=== PATIENT | female | born 1930 | race Caucasian/White ===

== ENCOUNTER 2016-11-08 11:49 | Observation (INO) | payer MEDICARE, OTHER ==
[2016-11-08] MEDS ORDERED: SALINE FLUSH 10 ML DISP.SYRIN IVF ONE ×3 (11:59→17:10)
[2016-11-08 12:44] LABS: MEAN CORPUSCULAR HEMOGLOBIN 30.6 pg (28.0-34.0); MEAN CORPUSCULAR VOLUME 96.1 fl (80.0-100.0)
[2016-11-08 13:02] LABS: eGFR (African) > 60; eGFR (Non-African) 38
[2016-11-08] MEDS ORDERED: cefTRIAXone SODIUM 1 GM VIAL ONE (13:18)
[2016-11-08] MEDS ORDERED: 0.9 % SODIUM CHLORIDE 50 ML IV ONE ×2 (13:18→23:52)
--- NOTE | 2016-11-08 13:47 | History and Physical Report ---
History of Present Illnes - History of Present Illness Reason for Visit: Dyspnea, pneumonia, diarrhea History of Present Illness: This is an 86 year old female who has been ill now for the past week. I saw her last week for cough, fever and dyspnea, and she returned to the clinic today for a recheck. She was more dyspneic and was still having fevers off and on. She has a Proair inhaler at home, but does not have a nebulizer. 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 She is feeling more weak, and can no longer ambulate around her home due to weakness and shortness of breath, which she had been able to do prior to this illness. - Past Medical History Cardiac: AFIB (atrial fib/flutter), HTN, Other (cardiomegaly,) Infectious Disease: Other (post herpetic neuralgia) Endocrine: Hypothyroidism - Past Surgical History Past Surgical History: Cataract Removal, Total Hip Replacement - Past Social History Smoke: No Occupation: retired Alcohol: None Drugs: None Lives: With Family (daughter) Domestic Violence: Negative - Health Maintenance Health Maintenance: Tetanus (12/16/15) Influenza Vaccine: Current for this Influenza Season Pneumonia Vaccine: Yes Resuscitation Status: Resusciation Status Resuscitation Status Full Code - Unable to Obtain History Unable to Obtain: No Review of Systems - Review of Systems Constitutional: Fever, Chills, Sweats, Weakness, Malaise Eyes: negative: pain, vision change ENT: negative: Ear Pain, Ear Discharge Respiratory: Cough, Shortness of Breath, SOB with Excertion. negative: Hemoptysis Cardiovascular: negative: Chest Pain, Palpitations, Orthopnea Gastrointestinal: Diarrhea. negative: Nausea Genitourinary: negative: Dysuria Musculoskeletal: negative: Neck Pain, Shoulder Pain, Arm Pain Skin: negative: Rash Neurological: Weakness, Incoordination. negative: Confusion - Medications/Allergies Allergies/Adverse Reactions: Allergies Allergy/AdvReac Type Severity Reaction Status Date / Time No Known Allergies Allergy Verified 07/03/16 11:47 Current Inpatient Medications: Current Inpatient Medications Albuterol/Ipratropium (Duoneb) 3 ml NEB QID [facility] Digoxin (Lanoxin) 125 mcg PO [id number] [facility] Diltiazem HCl (Cardizem Cd) 120 mg PO DAILY [facility] Donepezil HCl (Aricept) 10 mg PO HS [facility] Furosemide (Lasix) 40 mg PO DAILY [facility] Gabapentin (Neurontin) 300 mg PO TID [facility] Ceftriaxone Sodium 1 gm/ (Sodium Chloride) 50 mls @ 100 mls/hr IV QD [facility] Clindamycin Phosphate 150 mg/ (Sodium Chloride) 51 mls @ 51 mls/hr IV Q6 [facility] Levothyroxine Sodium (Synthroid) 50 mcg PO 0700 [facility] Metoprolol Succinate (Toprol Xl) 25 mg PO DAILY [facility] Potassium Chloride (Klor-Con M20) 20 meq PO DAILY [facility] Ropinirole HCl (Requip) 2 mg PO HS [facility] Warfarin Sodium (Coumadin) 5 mg PO [id number] [facility] Exam - Exam General: Alert, Oriented to Person, Oriented to Place, Oriented to Time, Cooperative, Moderate distress (respiratory) HEENT: Atraumatic, PERRLA, EOMI Neck: No: Stridor, Rigidity Lungs: Wheezes, Rhonchi, Prolonged Expiration Cardiovascular: Irregularly Irregular, Atrial Fib Murmur: Systolic Murmur Murmur Location: Left Sternal Boarder Heart Murmur Grade: II Abdomen: Normal bowel sounds, Soft, No tenderness Genitourinary: No: Right Inguinal Hernia Male Genitourinary: No: Other Female Genitourinary: No: Prolapse Integumentary: Normal, [place], Flushed Extremities: No clubbing, No cyanosis, No edema Neurological: Strength Equal Bilat. No: Normal gait, Right Sided Weakness, Left Sided Weakness Psych/Mental Status: Mental status NL - Laboratory Results Laboratory Results: Laboratory Results 11/08/16 11/08/16 12:40 12:40 WBC 6.90 RBC 4.50 Hgb 13.8 Hct 43.3 MCV 96.1 MCH 30.6 MCHC 31.9 RDW 13.1 Plt Count 93 L Sodium 133 L Potassium 4.8 Chloride 103 Carbon Dioxide 28 BUN 47 H Creatinine 1.4 Est GFR ( Amer) > 60 Est GFR (Non-Af Amer) 38 L Glucose 105 H Calcium 9.0 Total Bilirubin 0.4 AST 34 ALT 21 Alkaline Phosphatase 101 Total Protein 6.9 Albumin 4.1 Assessment/Plan - Assessment/Plan (1) Pneumonia Status: Acute Current Visit: No Qualifiers: Pneumonia type: due to unspecified organism Laterality: right Lung location: middle lobe of lung Qualified Code(s): J18.9 - Pneumonia, unspecified organism Assessment: Started IV rocephin and clindamycin. Avoided a macrolide due to warfarin therapy (2) Diarrhea Status: Acute Current Visit: Yes Assessment: Recurrent Plan: Check gastrointestinal pathogen panel (3) Atrial fibrillation Status: Chronic Current Visit: No Qualifiers: Atrial fibrillation type: chronic Qualified Code(s): I48.2 - Chronic atrial fibrillation Assessment: Chronic Plan: Continue current medications for rate control/anticoagulation Check INR (4) HTN (hypertension) Status: Chronic Current Visit: No Qualifiers: Hypertension type: essential hypertension Qualified Code(s): I10 - Essential (primary) hypertension Assessment: Continue current medications VTE Assessment - RISK FACTOR SCORE VTE RISK FACTOR SCORES: AGE OVER 60 YEARS, ACUTE INFECTION OTHER THEN SEPSIS - RISK VTE MODERATE RISK: SCORE OF 2 (RISK PROXIMAL DVT 2-4%) PROPHYAXIS NEEDED ( Orderd LEXII soliman, continue warfarin)
[2016-11-08 14:20] VITALS: BMI 31.4
[2016-11-08] MEDS: cefTRIAXone SODIUM 1 GM in 0.9 % SODIUM CHLORIDE 50 ML IV SCH (14:23)
[2016-11-08] MEDS: SODIUM CHLORIDE 0.9% IV SCH ×3 (16:38→23:54)
[2016-11-08] MEDS: CLINDAMYCIN PHOSPHATE IV SCH ×3 (16:38→23:54)
--- NOTE | 2016-11-08 16:41 | Diagnostic Imaging Report ---
[facility] [address] [facility].[address] 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 No acute infiltrates or pleural effusion. Thoracic spine spondylosi . Impression: Mild cardiomegaly with atherosclerotic thoracic aorta No acute infiltrates or pleural effusion Electronically signed on Nov 08, 2016 3:48:11 PM MAINTENANCE MILLWRIGHT by: Jeremi PAULA
[2016-11-08] MEDS: GABAPENTIN 300 MG CAPSULE PO SCH (17:38)
[2016-11-08] MEDS: WARFARIN SODIUM 5 MG TABLET PO SCH (17:39)
[2016-11-08] MEDS: IPRATROPIUM/ALBUTEROL SULFATE 3 ML AMPUL.NEB NEB SCH ×2 (18:46→19:57)
[2016-11-08] MEDS: 0.9 % SODIUM CHLORIDE 1,000 ML IV SCH (19:50)
[2016-11-08] MEDS: rOPINIRole HCL 1 MG TABLET PO SCH (19:56)
[2016-11-08] MEDS: DONEPEZIL HCL 5 MG TABLET PO SCH (19:57)
[2016-11-08] MEDS ORDERED: SALINE FLUSH 10 ML DISP.SYRIN IV SCH (21:00)
[2016-11-09] MEDS: SODIUM CHLORIDE 0.9% IV SCH ×3 (05:58→18:42)
[2016-11-09] MEDS: CLINDAMYCIN PHOSPHATE IV SCH ×3 (05:58→18:42)
[2016-11-09 07:06] LABS: eGFR (African) > 60; eGFR (Non-African) 38
[2016-11-09] MEDS: GABAPENTIN 300 MG CAPSULE PO SCH ×3 (08:51→18:41)
[2016-11-09] MEDS: LEVOTHYROXINE SODIUM 25 MCG TABLET PO SCH (08:51)
[2016-11-09] MEDS: DILTIAZEM HCL 120 MG CAP.ER.24H PO SCH (08:52)
[2016-11-09] MEDS: METOPROLOL SUCCINATE 50 MG TAB.ER.24H PO SCH (08:53)
[2016-11-09] MEDS: POTASSIUM CHLORIDE 20 MEQ TABLET.ER PO SCH (08:53)
[2016-11-09] MEDS: SALINE FLUSH 10 ML DISP.SYRIN IVF SCH ×2 (08:54→21:05)
[2016-11-09] MEDS ORDERED: FUROSEMIDE 40 MG TABLET PO SCH (09:00)
--- NOTE | 2016-11-09 09:04 | Inpatient Progress Note ---
Subjective - Required Recertification Statement I anticipate X number of days because-include discharge plan: 3 - Review of Systems Events since last encounter: Kaia is feeling a little better. She is still dehydrated and her diarrhea is still ongoing. Her gastrointestinal pathogens panel is still pending, but has been collected. Her breathing is better with nebulizer treatment. General: Denies: Chills HEENT: Denies: Head Aches Pulmonary: Dyspnea, Cough Cardiovascular: Denies: Chest Pain Gastrointestinal: Diarrhea. Denies: Nausea Genitourinary: Denies: Dysuria Musculoskeletal: Denies: Neck Pain, Shoulder Pain Neurological: Weakness. Denies: Confusion Objective - Exam Vitals and I&O: Vital Signs Temp 97.7 F 11/09/16 05:53 Pulse 110 H 11/09/16 05:53 Resp 18 11/09/16 05:53 BP 125/58 11/09/16 05:53 Pulse Ox 93 11/09/16 05:53 Intake & Output 11/08/16 11/08/16 11/09/16 11:59 23:59 11:59 Intake Total 540 Balance 540 Weight 88.451 kg Intake: IV 100 Left Forearm 100 Oral 440 Other: Voiding Method Toilet # Voids 1 # Bowel Movements 1 General: Alert, Oriented to Person, Oriented to Place, Oriented to Time HEENT: Atraumatic, PERRLA, EOMI Neck: Supple, No JVD Lungs: Wheezes, Rhonchi Cardiovascular: Regularly Irregular Abdomen: Normal bowel sounds, Soft, No tenderness Extremities: No clubbing, No cyanosis, No edema Skin: Normal, [place], Warm Neurological: Normal gait, Normal speech Psych/Mental Status: Mental status NL - Results Results: Laboratory Results WBC 6.90 K/ul (4.00-12.00) 11/08/16 12:40 RBC 4.50 M/ul (3.90-5.20) 11/08/16 12:40 Hgb 13.8 g/dL (12.0-16.0) 11/08/16 12:40 Hct 43.3 % (34.5-46.5) 11/08/16 12:40 MCV 96.1 fl (80.0-100.0) 11/08/16 12:40 MCH 30.6 pg (28.0-34.0) 11/08/16 12:40 MCHC 31.9 g/dL (30.0-36.0) 11/08/16 12:40 RDW 13.1 % (11.3-14.3) 11/08/16 12:40 Plt Count 93 K/mm3 (130-400) L 11/08/16 12:40 Sodium 135 mmol/L (136-145) L 11/09/16 06:25 Potassium 4.2 mmol/L (3.5-5.0) 11/09/16 06:25 Chloride 103 mmol/L (98-110) 11/09/16 06:25 Carbon Dioxide 22 mmol/L (20-32) 11/09/16 06:25 BUN 43 mg/dL (10-26) H 11/09/16 06:25 Creatinine 1.4 mg/dL (0.4-1.5) 11/09/16 06:25 Estimated Creat Clear 46 11/09/16 06:25 Est GFR ( Amer) > 60 (60-) 11/09/16 06:25 Est GFR (Non-Af Amer) 38 (60-) L 11/09/16 06:25 Glucose 90 mg/dL (70-99) 11/09/16 06:25 Calcium 8.7 mg/dL (8.5-10.5) 11/09/16 06:25 Total Bilirubin 0.4 mg/dL (0.2-1.2) 11/08/16 12:40 AST 34 U/L (0-41) 11/08/16 12:40 ALT 21 U/L (0-45) 11/08/16 12:40 Alkaline Phosphatase 101 U/L (46-116) 11/08/16 12:40 Total Protein 6.9 g/dL (6.0-8.5) 11/08/16 12:40 Albumin 4.1 g/dL (3.0-5.5) 11/08/16 12:40 Assessment/Plan - Assessment/Plan (1) Diarrhea Status: Acute Current Visit: Yes Assessment: Likely recurrence of c. dif Plan: Await gastrointestinal pathogen panel (2) Dehydration Status: Acute Current Visit: No Assessment: Improved, but still azotemic Plan: Continue IVF (3) Pneumonia Status: Acute Current Visit: No Qualifiers: Pneumonia type: due to unspecified organism Laterality: right Lung location: middle lobe of lung Qualified Code(s): J18.9 - Pneumonia, unspecified organism (4) Atrial fibrillation Status: Chronic Current Visit: No Qualifiers: Atrial fibrillation type: chronic Qualified Code(s): I48.2 - Chronic atrial fibrillation Assessment: Chronic Plan: Continue warfarin (5) HTN (hypertension) Status: Chronic Current Visit: No Qualifiers: Hypertension type: essential hypertension Qualified Code(s): I10 - Essential (primary) hypertension Assessment: Controlled
[2016-11-09] MEDS: 0.9 % SODIUM CHLORIDE 1,000 ML IV SCH ×3 (10:45→22:06)
[2016-11-09] MEDS: IPRATROPIUM/ALBUTEROL SULFATE 3 ML AMPUL.NEB NEB SCH ×4 (12:03→22:06)
[2016-11-09] MEDS: DIGOXIN 125 MCG TABLET PO SCH (12:27)
[2016-11-09 14:39] LABS: ADENOVIRUS F 40/41 Not Detected (Not Detected); ASTROVIRUS Not Detected (Not Detected); C. DIFFICILE (TOXIN A/B) Positive (Not Detected); CRYPTOSPORIDIUM Not Detected (Not Detected); CYCLOSPORA CAYETANENSIS Not Detected (Not Detected); ENTAMOEBA HISTOLYTICA Not Detected (Not Detected); GIARDIA LAMBLIA Not Detected (Not Detected); ROTAVIRUS A Not Detected (Not Detected); SAPOVIRUS Not Detected (Not Detected); VIBRIO CHOLERAE Not Detected (Not Detected)
[2016-11-09] MEDS: cefTRIAXone SODIUM 1 GM in 0.9 % SODIUM CHLORIDE 50 ML IV SCH (14:53)
[2016-11-09] MEDS ORDERED: 0.9 % SODIUM CHLORIDE 50 ML IV ONE (18:07)
[2016-11-09] MEDS: WARFARIN SODIUM 5 MG TABLET PO SCH (18:40)
[2016-11-09] MEDS: DONEPEZIL HCL 5 MG TABLET PO SCH (21:03)
[2016-11-09] MEDS: rOPINIRole HCL 1 MG TABLET PO SCH (21:04)
[2016-11-09] MEDS: VANCOMYCIN 125 MG/5 ML PO SCH (21:04)
[2016-11-10] MEDS: VANCOMYCIN 125 MG/5 ML PO SCH ×4 (01:00→18:42)
[2016-11-10] MEDS: CLINDAMYCIN PHOSPHATE IV SCH ×4 (01:05→18:41)
[2016-11-10] MEDS: SODIUM CHLORIDE 0.9% IV SCH ×4 (01:05→18:41)
[2016-11-10] MEDS: LEVOTHYROXINE SODIUM 25 MCG TABLET PO SCH (06:05)
--- NOTE | 2016-11-10 09:01 | Inpatient Progress Note ---
Subjective - Required Recertification Statement I anticipate X number of days because-include discharge plan: 2 - Review of Systems Events since last encounter: Kaia is feeling a little better, however she is still coughing quite a bit. Her gastrointestinal pathogen panel came back yesterday positive for clostridium dificile and she is now on po vancomycin (she is unable to tolerate po metronidazole due to abdominal pain). Her diarrhea continues currently. I am rechecking her chest x ray this morning. General: Denies: Chills, Night Sweats HEENT: Denies: Head Aches Pulmonary: Dyspnea, Cough Cardiovascular: Denies: Chest Pain, Palpitations Gastrointestinal: Diarrhea (and complains of rectal discomfort due to excoriation). Denies: Nausea, Vomiting Genitourinary: Denies: Dysuria Musculoskeletal: Denies: Neck Pain, Shoulder Pain Neurological: Weakness. Denies: Confusion Objective - Exam Vitals and I&O: Vital Signs Temp 98.4 F 11/10/16 06:00 Pulse 110 H 11/10/16 06:00 Resp 22 11/10/16 06:00 BP 108/73 11/10/16 06:00 Pulse Ox 92 11/10/16 06:00 Intake & Output 11/09/16 11/09/16 11/10/16 11:59 23:59 11:59 Intake Total 480 1120 500 Balance 480 1120 500 Intake: Oral 480 1120 500 Other: Voiding Method Toilet Toilet # Voids 1 3 # Bowel Movements 0 General: Alert, Oriented to Person, Oriented to Place, Oriented to Time, Cooperative, Mild distress (respiratory) HEENT: Atraumatic, PERRLA, EOMI. No: Nose Mucous membr. moist/[place] (dry) Neck: Supple, No JVD Lungs: Wheezes, Rales, Rhonchi, Prolonged Expiration Cardiovascular: Irregularly Irregular Abdomen: Normal bowel sounds, Soft, No tenderness Extremities: No clubbing, No cyanosis, No edema Skin: Normal, [place], Warm Neurological: Normal speech Psych/Mental Status: Mental status NL - Results Results: Laboratory Results WBC 6.90 K/ul (4.00-12.00) 11/08/16 12:40 RBC 4.50 M/ul (3.90-5.20) 11/08/16 12:40 Hgb 13.8 g/dL (12.0-16.0) 11/08/16 12:40 Hct 43.3 % (34.5-46.5) 11/08/16 12:40 MCV 96.1 fl (80.0-100.0) 11/08/16 12:40 MCH 30.6 pg (28.0-34.0) 11/08/16 12:40 MCHC 31.9 g/dL (30.0-36.0) 11/08/16 12:40 RDW 13.1 % (11.3-14.3) 11/08/16 12:40 Plt Count 93 K/mm3 (130-400) L 11/08/16 12:40 PT 28.6 Seconds (9.7-11.5) H 11/09/16 09:45 INR 2.7 (0.9-1.1) H 11/09/16 09:45 Sodium 135 mmol/L (136-145) L 11/09/16 06:25 Potassium 4.2 mmol/L (3.5-5.0) 11/09/16 06:25 Chloride 103 mmol/L (98-110) 11/09/16 06:25 Carbon Dioxide 22 mmol/L (20-32) 11/09/16 06:25 BUN 43 mg/dL (10-26) H 11/09/16 06:25 Creatinine 1.4 mg/dL (0.4-1.5) 11/09/16 06:25 Estimated Creat Clear 46 11/09/16 06:25 Est GFR ( Amer) > 60 (60-) 11/09/16 06:25 Est GFR (Non-Af Amer) 38 (60-) L 11/09/16 06:25 Glucose 90 mg/dL (70-99) 11/09/16 06:25 Calcium 8.7 mg/dL (8.5-10.5) 11/09/16 06:25 Total Bilirubin 0.4 mg/dL (0.2-1.2) 11/08/16 12:40 AST 34 U/L (0-41) 11/08/16 12:40 ALT 21 U/L (0-45) 11/08/16 12:40 Alkaline Phosphatase 101 U/L (46-116) 11/08/16 12:40 Total Protein 6.9 g/dL (6.0-8.5) 11/08/16 12:40 Albumin 4.1 g/dL (3.0-5.5) 11/08/16 12:40 Stl C. cayetanensis PCR Not detected (Not Detected) 11/09/16 08:10 Stool Rotavirus (PCR) Not detected (Not Detected) 11/09/16 08:10 Stool Astrovirus (PCR) Not detected (Not Detected) 11/09/16 08:10 Stool Campylobacter PCR Not detected (Not Detected) 11/09/16 08:10 Stool Cryptosporidium PCR Not detected (Not Detected) 11/09/16 08:10 Stl E.coli Shiga Toxins Not detected (Not Detected) 11/09/16 08:10 Stool E.coli 0157 Cult Not detected (Not Detected) 11/09/16 08:10 Stl Aggregat E Coli PCR Not detected (Not Detected) 11/09/16 08:10 Stl E. histolytica PCR Not detected (Not Detected) 11/09/16 08:10 Stool Giardia Lamblia PCR Not detected (Not Detected) 11/09/16 08:10 Stool Sapovirus (PCR) Not detected (Not Detected) 11/09/16 08:10 Stl P. shigelloides PCR Not detected (Not Detected) 11/09/16 08:10 St Y.enterocolitica PCR Not detected (Not Detected) 11/09/16 08:10 Stool Vibrio (PCR) Not detected (Not Detected) 11/09/16 08:10 Stl Vibrio cholerae PCR Not detected (Not Detected) 11/09/16 08:10 Stl Norovirus GI/GII PCR Not detected (Not Detected) 11/09/16 08:10 Adenovirus (PCR) Not detected (Not Detected) 11/09/16 08:10 C. diff Tox Assay (Ref) Positive (Not Detected) H 11/09/16 08:10 E. coli (PCR) Not detected (Not Detected) 11/09/16 08:10 Escherichia coli 0157 Not detected (Not Detected) 11/09/16 08:10 Salmonella (PCR) Not detected (Not Detected) 11/09/16 08:10 Assessment/Plan - Assessment/Plan (1) Diarrhea Status: Acute Current Visit: Yes Assessment: Due to c. dif Plan: Continue po vancomycin (2) Dehydration Status: Acute Current Visit: No Assessment: Improved Plan: Continue IVF due to ongoing fluid losses with diarrhea (3) Pneumonia Status: Acute Current Visit: No Qualifiers: Pneumonia type: due to unspecified organism Laterality: right Lung location: middle lobe of lung Qualified Code(s): J18.9 - Pneumonia, unspecified organism Assessment: Recheck CXR today (4) Atrial fibrillation Status: Chronic Current Visit: No Qualifiers: Atrial fibrillation type: chronic Qualified Code(s): I48.2 - Chronic atrial fibrillation Assessment: Adequately anticoagulated (5) HTN (hypertension) Status: Chronic Current Visit: No Qualifiers: Hypertension type: essential hypertension Qualified Code(s): I10 - Essential (primary) hypertension Assessment: Well controlled
[2016-11-10] MEDS: 0.9 % SODIUM CHLORIDE 1,000 ML IV SCH ×4 (09:10→23:08)
[2016-11-10] MEDS: IPRATROPIUM/ALBUTEROL SULFATE 3 ML AMPUL.NEB NEB SCH ×4 (09:12→21:00)
[2016-11-10] MEDS: POTASSIUM CHLORIDE 20 MEQ TABLET.ER PO SCH (09:55)
[2016-11-10] MEDS: GABAPENTIN 300 MG CAPSULE PO SCH ×3 (09:55→18:42)
[2016-11-10] MEDS: DILTIAZEM HCL 120 MG CAP.ER.24H PO SCH (09:55)
[2016-11-10] MEDS: METOPROLOL SUCCINATE 50 MG TAB.ER.24H PO SCH (09:56)
[2016-11-10] MEDS: SALINE FLUSH 10 ML DISP.SYRIN IVF SCH ×2 (10:01→21:17)
--- NOTE | 2016-11-10 11:46 | Diagnostic Imaging Report ---
[facility] [address] [facility] [address] [address] Report Submission Date: Nov 10, 2016 11:06:38 AM TRACER [employer]LET SECTION SUPERVISOR Patient Study Name: NISH CASH Date: Nov 10, 2016 8:57:01 AM TRACER [employer]LET SE[employer] SUPERVISOR Modality Type: CR Gender: F Description: CHEST : 28 Institution: [facility] Physician: [facility] Chest - one-view Clinical history: Fever. Dyspnea. Findings: Examination of the chest in single portable AP view 11/10/2016 0857 hours with comparison to examination of 11/08/2016 demonstrates again cardiomegaly and aortic atherosclerosis. There is patchy infiltrate in the retrocardiac region of the right base. The aorta is atherosclerotic. Bony thorax is intact. Impression: 1. Patchy right basilar infiltrate. 2. Cardiomegaly and aortic atherosclerosis. Electronically signed on Nov 10, 2016 11:06:38 AM TRACER [employer]ULLET SECTION SUPERVISOR by: Ernesto PAULA
[2016-11-10] MEDS: DIGOXIN 125 MCG TABLET PO SCH (12:28)
[2016-11-10] MEDS: cefTRIAXone SODIUM 1 GM in 0.9 % SODIUM CHLORIDE 50 ML IV SCH (13:25)
[2016-11-10] MEDS: WARFARIN SODIUM 5 MG TABLET PO SCH (18:41)
[2016-11-10] MEDS: DONEPEZIL HCL 5 MG TABLET PO SCH (21:16)
[2016-11-10] MEDS: ACETAMINOPHEN 325 MG TABLET PO PRN (21:17)
[2016-11-10] MEDS: rOPINIRole HCL 1 MG TABLET PO SCH (21:17)
[2016-11-11] MEDS: CLINDAMYCIN PHOSPHATE IV SCH ×5 (00:46→23:52)
[2016-11-11] MEDS: SODIUM CHLORIDE 0.9% IV SCH ×5 (00:46→23:52)
[2016-11-11] MEDS: VANCOMYCIN 125 MG/5 ML PO SCH ×5 (00:47→23:52)
[2016-11-11] MEDS: LEVOTHYROXINE SODIUM 25 MCG TABLET PO SCH (06:11)
[2016-11-11 07:03] LABS: MEAN CORPUSCULAR VOLUME 99.2 fl (80.0-100.0)
[2016-11-11 07:19] LABS: eGFR (African) > 60; eGFR (Non-African) > 60
[2016-11-11] MEDS: IPRATROPIUM/ALBUTEROL SULFATE 3 ML AMPUL.NEB NEB SCH ×4 (09:44→20:43)
[2016-11-11] MEDS: POTASSIUM CHLORIDE 20 MEQ TABLET.ER PO SCH ×2 (10:51→10:53)
[2016-11-11] MEDS: METOPROLOL SUCCINATE 50 MG TAB.ER.24H PO SCH (10:52)
[2016-11-11] MEDS: DILTIAZEM HCL 120 MG CAP.ER.24H PO SCH (10:53)
[2016-11-11] MEDS: SALINE FLUSH 10 ML DISP.SYRIN IVF SCH ×2 (10:54→20:31)
[2016-11-11] MEDS: GABAPENTIN 300 MG CAPSULE PO SCH ×5 (10:56→18:44)
--- NOTE | 2016-11-11 11:37 | Inpatient Progress Note ---
Subjective - Required Recertification Statement I anticipate X number of days because-include discharge plan: 2 - Review of Systems Events since last encounter: Kaia is breathing a little better today. Her fluids are now TKO, and her labs are improved. She says that she feels a little stronger. Her BMs are starting to have some form to them since starting on Vancomycin. General: Denies: Chills HEENT: Denies: Head Aches, Visual Changes Pulmonary: Dyspnea, Cough Cardiovascular: Denies: Chest Pain, Palpitations Gastrointestinal: Diarrhea (improved). Denies: Nausea, Vomiting Genitourinary: Denies: Dysuria, Frequency Musculoskeletal: Denies: Neck Pain, Shoulder Pain Neurological: Weakness. Denies: Confusion Objective - Exam Vitals and I&O: Vital Signs Temp 97.4 F L 11/11/16 09:06 Pulse 116 H 11/11/16 09:06 Resp 20 11/11/16 09:06 BP 133/87 11/11/16 09:06 Pulse Ox 96 11/11/16 09:06 Intake & Output 11/10/16 11/10/16 11/11/16 11:59 23:59 11:59 Intake Total 860 970 480 Balance 860 970 480 Weight 88.451 kg Intake: IV 250 Right Wrist 250 Oral 860 720 480 Other: Voiding Method Toilet Toilet # Voids 3 2 2 # Bowel Movements 0 1 1 General: Alert, Oriented to Person, Oriented to Place, Obese HEENT: Atraumatic, PERRLA, EOMI Neck: Supple, No JVD Lungs: Wheezes, Rales, Rhonchi, Prolonged Expiration, Decreased Air Movement Cardiovascular: Irregularly Irregular Abdomen: Normal bowel sounds, Soft, No tenderness Extremities: No clubbing, No cyanosis, No edema Skin: Normal, [place], Warm Neurological: Normal speech, Strength Equal Bilat Psych/Mental Status: Mental status NL - Results Results: Laboratory Results WBC 7.00 K/ul (4.00-12.00) 11/11/16 06:35 RBC 4.16 M/ul (3.90-5.20) 11/11/16 06:35 Hgb 12.9 g/dL (12.0-16.0) 11/11/16 06:35 Hct 41.3 % (34.5-46.5) 11/11/16 06:35 MCV 99.2 fl (80.0-100.0) 11/11/16 06:35 MCH 31.0 pg (28.0-34.0) 11/11/16 06:35 MCHC 31.3 g/dL (30.0-36.0) 11/11/16 06:35 RDW 13.1 % (11.3-14.3) 11/11/16 06:35 Plt Count 96 K/mm3 (130-400) L 11/11/16 06:35 PT 28.6 Seconds (9.7-11.5) H 11/09/16 09:45 INR 2.7 (0.9-1.1) H 11/09/16 09:45 Sodium 135 mmol/L (136-145) L 11/11/16 06:35 Potassium 4.5 mmol/L (3.5-5.0) 11/11/16 06:35 Chloride 103 mmol/L (98-110) 11/11/16 06:35 Carbon Dioxide 22 mmol/L (20-32) 11/11/16 06:35 BUN 17 mg/dL (10-26) 11/11/16 06:35 Creatinine 0.9 mg/dL (0.4-1.5) 11/11/16 06:35 Estimated Creat Clear 72 11/11/16 06:35 Est GFR ( Amer) > 60 (60-) 11/11/16 06:35 Est GFR (Non-Af Amer) > 60 (60-) 11/11/16 06:35 Glucose 106 mg/dL (70-99) H 11/11/16 06:35 Calcium 9.0 mg/dL (8.5-10.5) 11/11/16 06:35 Total Bilirubin 0.4 mg/dL (0.2-1.2) 11/08/16 12:40 AST 34 U/L (0-41) 11/08/16 12:40 ALT 21 U/L (0-45) 11/08/16 12:40 Alkaline Phosphatase 101 U/L (46-116) 11/08/16 12:40 Total Protein 6.9 g/dL (6.0-8.5) 11/08/16 12:40 Albumin 4.1 g/dL (3.0-5.5) 11/08/16 12:40 Stl C. cayetanensis PCR Not detected (Not Detected) 11/09/16 08:10 Stool Rotavirus (PCR) Not detected (Not Detected) 11/09/16 08:10 Stool Astrovirus (PCR) Not detected (Not Detected) 11/09/16 08:10 Stool Campylobacter PCR Not detected (Not Detected) 11/09/16 08:10 Stool Cryptosporidium PCR Not detected (Not Detected) 11/09/16 08:10 Stl E.coli Shiga Toxins Not detected (Not Detected) 11/09/16 08:10 Stool E.coli 0157 Cult Not detected (Not Detected) 11/09/16 08:10 Stl Aggregat E Coli PCR Not detected (Not Detected) 11/09/16 08:10 Stl E. histolytica PCR Not detected (Not Detected) 11/09/16 08:10 Stool Giardia Lamblia PCR Not detected (Not Detected) 11/09/16 08:10 Stool Sapovirus (PCR) Not detected (Not Detected) 11/09/16 08:10 Stl P. shigelloides PCR Not detected (Not Detected) 11/09/16 08:10 St Y.enterocolitica PCR Not detected (Not Detected) 11/09/16 08:10 Stool Vibrio (PCR) Not detected (Not Detected) 11/09/16 08:10 Stl Vibrio cholerae PCR Not detected (Not Detected) 11/09/16 08:10 Stl Norovirus GI/GII PCR Not detected (Not Detected) 11/09/16 08:10 Adenovirus (PCR) Not detected (Not Detected) 11/09/16 08:10 C. diff Tox Assay (Ref) Positive (Not Detected) H 11/09/16 08:10 E. coli (PCR) Not detected (Not Detected) 11/09/16 08:10 Escherichia coli 0157 Not detected (Not Detected) 11/09/16 08:10 Salmonella (PCR) Not detected (Not Detected) 11/09/16 08:10 Assessment/Plan - Assessment/Plan (1) Diarrhea Status: Acute Current Visit: Yes Assessment: due to clostridium dificile Plan: Continue PO vancomycin (2) Dehydration Status: Acute Current Visit: No Assessment: Improved with fluid rehydration Have TKO fluids Renal labs have normalized (3) Pneumonia Status: Acute Current Visit: No Qualifiers: Pneumonia type: due to unspecified organism Laterality: right Lung location: lower lobe of lung Qualified Code(s): J18.1 - Lobar pneumonia, unspecified organism Assessment: Continue current antibiotic therapy (4) Atrial fibrillation Status: Chronic Current Visit: No Qualifiers: Atrial fibrillation type: chronic Qualified Code(s): I48.2 - Chronic atrial fibrillation (5) HTN (hypertension) Status: Chronic Current Visit: No Qualifiers: Hypertension type: essential hypertension Qualified Code(s): I10 - Essential (primary) hypertension Assessment: Stable
[2016-11-11] MEDS: cefTRIAXone SODIUM 1 GM in 0.9 % SODIUM CHLORIDE 50 ML IV SCH (13:00)
[2016-11-11] MEDS: DIGOXIN 125 MCG TABLET PO SCH (13:53)
[2016-11-11] MEDS: 0.9 % SODIUM CHLORIDE 1,000 ML IV SCH ×2 (17:15→22:56)
[2016-11-11] MEDS: WARFARIN SODIUM 5 MG TABLET PO SCH (18:37)
[2016-11-11] MEDS ORDERED: 0.9 % SODIUM CHLORIDE 50 ML IV ONE (19:53)
[2016-11-11] MEDS: rOPINIRole HCL 1 MG TABLET PO SCH (20:30)
[2016-11-11] MEDS: DONEPEZIL HCL 5 MG TABLET PO SCH (20:30)
[2016-11-11] MEDS: ACETAMINOPHEN 325 MG TABLET PO PRN (22:08)
[2016-11-11] MEDS ORDERED: IPRATROPIUM/ALBUTEROL SULFATE 3 ML AMPUL.NEB NEB ONE (22:48)
[2016-11-12] MEDS: SODIUM CHLORIDE 0.9% IV SCH (06:01)
[2016-11-12] MEDS: CLINDAMYCIN PHOSPHATE IV SCH (06:01)
[2016-11-12] MEDS: VANCOMYCIN 125 MG/5 ML PO SCH (06:02)
[2016-11-12] MEDS: LEVOTHYROXINE SODIUM 25 MCG TABLET PO SCH (06:02)
[2016-11-12 06:42] VITALS: BP 135/92
--- NOTE | 2016-11-12 08:40 | Inpatient Progress Note ---
Subjective - Required Recertification Statement I anticipate X number of days because-include discharge plan: 2 - Review of Systems Events since last encounter: Kaia had a nightmare last night that was fairly distressing to her. She dreamed that she was in the young, and there were old people there that needed help, but she couldn't help them. She is breathing better, and has no edema. General: Denies: Chills HEENT: Denies: Head Aches, Visual Changes Pulmonary: Denies: Dyspnea, Cough Cardiovascular: Denies: Chest Pain Gastrointestinal: Nausea. Denies: Vomiting Genitourinary: Denies: Dysuria Musculoskeletal: Denies: Neck Pain Neurological: Weakness, Other Objective - Exam Vitals and I&O: Vital Signs Temp 98.6 F 11/12/16 06:00 Pulse 122 H 11/12/16 06:00 Resp 24 11/12/16 06:00 BP 135/92 11/12/16 06:00 Pulse Ox 90 L 11/12/16 06:00 Intake & Output 11/11/16 11/11/16 11/12/16 11:59 23:59 11:59 Intake Total 480 840 Output Total 3 Balance 480 837 Intake: Oral 480 840 Output: Urine 3 Other: Voiding Method Toilet Toilet # Voids 2 1 3 # Bowel Movements 1 2 General: Alert, Oriented to Person, Oriented to Place HEENT: Atraumatic, PERRLA Neck: Supple, No JVD Lungs: Wheezes, Prolonged Expiration, Decreased Air Movement Cardiovascular: Irregularly Irregular Abdomen: Normal bowel sounds Extremities: No edema Skin: Normal, [place] Neurological: Normal speech Psych/Mental Status: Mental status NL - Results Results: Laboratory Results WBC 7.00 K/ul (4.00-12.00) 11/11/16 06:35 RBC 4.16 M/ul (3.90-5.20) 11/11/16 06:35 Hgb 12.9 g/dL (12.0-16.0) 11/11/16 06:35 Hct 41.3 % (34.5-46.5) 11/11/16 06:35 MCV 99.2 fl (80.0-100.0) 11/11/16 06:35 MCH 31.0 pg (28.0-34.0) 11/11/16 06:35 MCHC 31.3 g/dL (30.0-36.0) 11/11/16 06:35 RDW 13.1 % (11.3-14.3) 11/11/16 06:35 Plt Count 96 K/mm3 (130-400) L 11/11/16 06:35 PT 28.6 Seconds (9.7-11.5) H 11/09/16 09:45 INR 2.7 (0.9-1.1) H 11/09/16 09:45 Sodium 135 mmol/L (136-145) L 11/11/16 06:35 Potassium 4.5 mmol/L (3.5-5.0) 11/11/16 06:35 Chloride 103 mmol/L (98-110) 11/11/16 06:35 Carbon Dioxide 22 mmol/L (20-32) 11/11/16 06:35 BUN 17 mg/dL (10-26) 11/11/16 06:35 Creatinine 0.9 mg/dL (0.4-1.5) 11/11/16 06:35 Estimated Creat Clear 72 11/11/16 06:35 Est GFR ( Amer) > 60 (60-) 11/11/16 06:35 Est GFR (Non-Af Amer) > 60 (60-) 11/11/16 06:35 Glucose 106 mg/dL (70-99) H 11/11/16 06:35 Calcium 9.0 mg/dL (8.5-10.5) 11/11/16 06:35 Total Bilirubin 0.4 mg/dL (0.2-1.2) 11/08/16 12:40 AST 34 U/L (0-41) 11/08/16 12:40 ALT 21 U/L (0-45) 11/08/16 12:40 Alkaline Phosphatase 101 U/L (46-116) 11/08/16 12:40 Total Protein 6.9 g/dL (6.0-8.5) 11/08/16 12:40 Albumin 4.1 g/dL (3.0-5.5) 11/08/16 12:40 Stl C. cayetanensis PCR Not detected (Not Detected) 11/09/16 08:10 Stool Rotavirus (PCR) Not detected (Not Detected) 11/09/16 08:10 Stool Astrovirus (PCR) Not detected (Not Detected) 11/09/16 08:10 Stool Campylobacter PCR Not detected (Not Detected) 11/09/16 08:10 Stool Cryptosporidium PCR Not detected (Not Detected) 11/09/16 08:10 Stl E.coli Shiga Toxins Not detected (Not Detected) 11/09/16 08:10 Stool E.coli 0157 Cult Not detected (Not Detected) 11/09/16 08:10 Stl Aggregat E Coli PCR Not detected (Not Detected) 11/09/16 08:10 Stl E. histolytica PCR Not detected (Not Detected) 11/09/16 08:10 Stool Giardia Lamblia PCR Not detected (Not Detected) 11/09/16 08:10 Stool Sapovirus (PCR) Not detected (Not Detected) 11/09/16 08:10 Stl P. shigelloides PCR Not detected (Not Detected) 11/09/16 08:10 St Y.enterocolitica PCR Not detected (Not Detected) 11/09/16 08:10 Stool Vibrio (PCR) Not detected (Not Detected) 11/09/16 08:10 Stl Vibrio cholerae PCR Not detected (Not Detected) 11/09/16 08:10 Stl Norovirus GI/GII PCR Not detected (Not Detected) 11/09/16 08:10 Adenovirus (PCR) Not detected (Not Detected) 11/09/16 08:10 C. diff Tox Assay (Ref) Positive (Not Detected) H 11/09/16 08:10 E. coli (PCR) Not detected (Not Detected) 11/09/16 08:10 Escherichia coli 0157 Not detected (Not Detected) 11/09/16 08:10 Salmonella (PCR) Not detected (Not Detected) 11/09/16 08:10 Assessment/Plan - Assessment/Plan (1) Diarrhea Status: Acute Current Visit: Yes Assessment: Due to c. dif Plan: Continue po vancomycin (2) Dehydration Status: Acute Current Visit: No Assessment: Improved Plan: Encouraged po fluid intake (3) Pneumonia Status: Acute Current Visit: No Qualifiers: Pneumonia type: due to unspecified organism Laterality: right Lung location: lower lobe of lung Qualified Code(s): J18.1 - Lobar pneumonia, unspecified organism Assessment: Right basilar Plan: Continue nebulizer treatments (4) Atrial fibrillation Status: Chronic Current Visit: No Qualifiers: Atrial fibrillation type: chronic Qualified Code(s): I48.2 - Chronic atrial fibrillation Assessment: Chronic with adequate anticoagulation (5) HTN (hypertension) Status: Chronic Current Visit: No Qualifiers: Hypertension type: essential hypertension Qualified Code(s): I10 - Essential (primary) hypertension Assessment: Controlled
--- NOTE | 2016-12-15 16:02 | Discharge Summary ---
DATE OF ADMISSION: November 08, 2016 DATE OF DISCHARGE: November 12, 2016 DIAGNOSES ON THIS HOSPITALIZATION: 1. Pneumonia. 2. Clostridium difficile colitis. 3. Atrial fibrillation. 4. Hypertension. SUMMARIZATION OF ADMISSION HISTORY AND PHYSICAL: This is an 86-year-old female who had been ill for the week prior to her admission. I had seen her the previous week in the office for a cough and dyspnea. She returned to the clinic on the day of admission for a recheck and was more dyspneic and still having fevers. As a result, she was admitted for treatment. At that time, her chest x-ray initially was clear, however, with hydration, a repeat chest x-ray did show her to have a right basilar infiltrate. HOSPITAL COURSE: She was placed on IV antibiotics, specifically, azithromycin and Rocephin. She was also started on p.o. vancomycin because of her clostridium difficile colitis. She continued to improve and on November 12, she was transferred to a skilled stay in improved condition with continuation of all of her current medications. NISA
== END 2016-11-12 09:50 ==
LOC: SOUTH 11:49
PROVIDERS: ADMIT Family Medicine; ATTEND Family Medicine
DX: J18.9 Pneumonia, unspecified organism (principal); I48.91 Unspecified atrial fibrillation; I10 Essential (primary) hypertension; A04.7 Enterocolitis due to Clostridium difficile
CPT/HCPCS: 36415; 71010; 71020; 80048; 80053; 85027; 85610; 87040; 87507; 94640; 94760; 96361; 96374; 96376; J0696; J3490; A9270; G0378; G0379; J7030; S1016

== ENCOUNTER 2016-11-12 09:50 | Inpatient (IN) | payer MEDICARE, OTHER ==
[2016-11-12 11:57] VITALS: BMI 29.0
[2016-11-12] MEDS: IPRATROPIUM/ALBUTEROL SULFATE 3 ML AMPUL.NEB NEB SCH ×2 (12:56→17:13)
[2016-11-12] MEDS: GABAPENTIN 300 MG CAPSULE PO SCH ×2 (12:59→17:17)
[2016-11-12] MEDS: CEFUROXIME AXETIL 250 MG TABLET PO SCH ×2 (12:59→21:01)
[2016-11-12] MEDS: WARFARIN SODIUM 5 MG TABLET PO SCH (17:15)
[2016-11-12] MEDS: DONEPEZIL HCL 5 MG TABLET PO SCH (21:01)
[2016-11-13] MEDS: IPRATROPIUM/ALBUTEROL SULFATE 3 ML AMPUL.NEB NEB SCH ×4 (01:20→18:20)
[2016-11-13] MEDS: LEVOTHYROXINE SODIUM 25 MCG TABLET PO SCH (05:48)
[2016-11-13] MEDS: CEFUROXIME AXETIL 250 MG TABLET PO SCH ×2 (10:19→19:26)
[2016-11-13] MEDS: GABAPENTIN 300 MG CAPSULE PO SCH ×3 (10:19→18:20)
[2016-11-13] MEDS: DILTIAZEM HCL 120 MG CAP.ER.24H PO SCH (10:19)
[2016-11-13] MEDS: METOPROLOL SUCCINATE 50 MG TAB.ER.24H PO SCH (10:20)
[2016-11-13] MEDS: POTASSIUM CHLORIDE 20 MEQ TABLET.ER PO SCH (10:20)
[2016-11-13] MEDS: FUROSEMIDE 40 MG TABLET PO SCH (10:20)
[2016-11-13] MEDS: CELECOXIB 100 MG CAPSULE PO SCH (13:59)
[2016-11-13] MEDS: WARFARIN SODIUM 5 MG TABLET PO SCH (18:05)
[2016-11-13] MEDS: DONEPEZIL HCL 5 MG TABLET PO SCH (19:25)
[2016-11-13 20:17] LABS: eGFR (African) > 60; eGFR (Non-African) > 60
[2016-11-13] MEDS ORDERED: FUROSEMIDE 40 MG/4 ML VIAL ONE (20:49)
[2016-11-13] MEDS ORDERED: SALINE FLUSH 10 ML DISP.SYRIN IVF ONE (20:49)
[2016-11-13] MEDS ORDERED: FUROSEMIDE 40 MG/4 ML VIAL IVP ONE (20:49)
[2016-11-14] MEDS: IPRATROPIUM/ALBUTEROL SULFATE 3 ML AMPUL.NEB NEB SCH ×4 (00:10→18:28)
[2016-11-14] MEDS: LEVOTHYROXINE SODIUM 25 MCG TABLET PO SCH (05:18)
--- NOTE | 2016-11-14 08:44 | Diagnostic Imaging Report ---
[facility]/MED SURG [facility] [id number] [address] [facility] [address] [place] [address]. 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 Right pleural effusion is new Thoracic spine degenerative changes Impression: 1. Interval worsening of known right infrahilar infiltrate with new small right pleural effusion. 2. Cardiomegaly with hilar congestion. Minimal left basilar atelectasis Electronically signed on Nov 14, 2016 7:06:17 AM FARM EQUIPMENT MAINTENANCE SUPERVISOR by: Ariana PAULA
[2016-11-14] MEDS: CEFUROXIME AXETIL 250 MG TABLET PO SCH ×2 (09:22→20:47)
[2016-11-14] MEDS: DILTIAZEM HCL 120 MG CAP.ER.24H PO SCH (09:22)
[2016-11-14] MEDS: CELECOXIB 100 MG CAPSULE PO SCH (09:23)
[2016-11-14] MEDS: GABAPENTIN 300 MG CAPSULE PO SCH ×3 (09:23→18:16)
[2016-11-14] MEDS: FUROSEMIDE 40 MG TABLET PO SCH (09:23)
[2016-11-14] MEDS: METOPROLOL SUCCINATE 50 MG TAB.ER.24H PO SCH (09:23)
[2016-11-14] MEDS: POTASSIUM CHLORIDE 20 MEQ TABLET.ER PO SCH (09:23)
[2016-11-14] MEDS: WARFARIN SODIUM 5 MG TABLET PO SCH (18:17)
[2016-11-14] MEDS: DONEPEZIL HCL 5 MG TABLET PO SCH (20:47)
[2016-11-15 07:17] LABS: BASOPHILS % 0.4 (0.0-1.5); EOSINOPHILS % 3.3 % (0.0-6.8); LYMPHOCYTES # 1.4 # k/uL (0.6-4.0); MEAN CORPUSCULAR HEMOGLOBIN 30.4 pg (28.0-34.0); MONOCYTES # 0.6 # k/uL (0.0-0.9); MONOCYTES % 8.4 % (0.0-11.0); NEUTROPHILS # 5.4 # k/uL (1.4-7.7)
[2016-11-15] MEDS: METOPROLOL SUCCINATE 50 MG TAB.ER.24H PO SCH (09:53)
[2016-11-15] MEDS: GABAPENTIN 300 MG CAPSULE PO SCH ×3 (09:53→17:03)
[2016-11-15] MEDS: DILTIAZEM HCL 120 MG CAP.ER.24H PO SCH (09:54)
[2016-11-15] MEDS: POTASSIUM CHLORIDE 20 MEQ TABLET.ER PO SCH (09:54)
[2016-11-15] MEDS: FUROSEMIDE 40 MG TABLET PO SCH (09:54)
[2016-11-15] MEDS: CEFUROXIME AXETIL 250 MG TABLET PO SCH ×2 (09:54→20:52)
[2016-11-15] MEDS: IPRATROPIUM/ALBUTEROL SULFATE 3 ML AMPUL.NEB NEB SCH ×3 (10:15→17:20)
[2016-11-15] MEDS: LEVOTHYROXINE SODIUM 25 MCG TABLET PO SCH (10:16)
[2016-11-15] MEDS ORDERED: FUROSEMIDE 40 MG/4 ML VIAL IVP ONE (12:06)
[2016-11-15] MEDS: CELECOXIB 100 MG CAPSULE PO SCH (12:18)
[2016-11-15] MEDS ORDERED: SALINE FLUSH 10 ML DISP.SYRIN IVF ONE (12:21)
[2016-11-15] MEDS: WARFARIN SODIUM 5 MG TABLET PO SCH (17:03)
[2016-11-15] MEDS: DONEPEZIL HCL 5 MG TABLET PO SCH (20:52)
[2016-11-15] MEDS: DOXYCYCLINE MONOHYDRATE 100 MG CAPSULE PO SCH (20:52)
[2016-11-16] MEDS: IPRATROPIUM/ALBUTEROL SULFATE 3 ML AMPUL.NEB NEB SCH ×4 (04:59→17:21)
[2016-11-16] MEDS: LEVOTHYROXINE SODIUM 25 MCG TABLET PO SCH (06:37)
[2016-11-16 06:54] LABS: eGFR (African) > 60; eGFR (Non-African) > 60
[2016-11-16] MEDS: CELECOXIB 100 MG CAPSULE PO SCH (09:07)
[2016-11-16] MEDS: DOXYCYCLINE MONOHYDRATE 100 MG CAPSULE PO SCH ×2 (09:07→19:52)
[2016-11-16] MEDS: GABAPENTIN 300 MG CAPSULE PO SCH ×4 (09:07→18:45)
[2016-11-16] MEDS: POTASSIUM CHLORIDE 20 MEQ TABLET.ER PO SCH (09:08)
[2016-11-16] MEDS: CEFUROXIME AXETIL 250 MG TABLET PO SCH ×2 (09:09→19:53)
[2016-11-16] MEDS: DILTIAZEM HCL 120 MG CAP.ER.24H PO SCH (09:09)
[2016-11-16] MEDS: FUROSEMIDE 40 MG TABLET PO SCH (09:09)
[2016-11-16] MEDS: METOPROLOL SUCCINATE 50 MG TAB.ER.24H PO SCH (09:09)
[2016-11-16] MEDS: WARFARIN SODIUM 5 MG TABLET PO SCH (18:45)
[2016-11-16] MEDS: DONEPEZIL HCL 5 MG TABLET PO SCH (19:53)
[2016-11-17] MEDS: IPRATROPIUM/ALBUTEROL SULFATE 3 ML AMPUL.NEB NEB SCH ×4 (01:54→18:29)
[2016-11-17] MEDS: LEVOTHYROXINE SODIUM 25 MCG TABLET PO SCH (05:53)
--- NOTE | 2016-11-17 06:35 | Diagnostic Imaging Report ---
Report Submission Date: Nov 16, 2016 4:07:52 PM EDUCATIONAL MANAGER Patient ~ Study Name: NISH CASH ~ Date: Nov 16, 2016 3:12:55 PM EDUCATIONAL MANAGER ~ Modality Type: CR Gender: F ~ Description: CHEST : 28 ~ Institution: [facility] Physician: [facility] KLINE/MED SURG ~ ~ ~ ~ Pa and lateral chest Clinical history : Abnormal chest radiograph pleural effusion Comparison: 2 days earlier Technique pa and lateral upright Findings: There is cardiomegaly. The aorta is tortuous and calcified. The right pleural effusion and right lower lobe atelectasis are improved. Increased atelectasis present in the left lung base. Thoracic spondylosis is present. The pulmonary vascular congestion is about the same Impression: Improved right lung base Increased atelectasis in the left lung base Unchanged cardiomegaly and aortic atherosclerosis. Stable pulmonary vascular congestion ~ Electronically signed on Nov 16, 2016 4:07:52 PM EDUCATIONAL MANAGER by: Satish PAULA
--- NOTE | 2016-11-17 08:43 | Inpatient Progress Note ---
Subjective - Required Recertification Statement I anticipate X number of days because-include discharge plan: 5 - Review of Systems Events since last encounter: Kaia has been very congested lately. She has had some copious nasal discharge and has some blood mixed in with it. She has not been febrile. She gets some relief with the nebulizer treatments. She is eating well. Her BNP is a little elevated still, but improved from last check. General: Denies: Chills HEENT: Sinus Congestion. Denies: Head Aches, Visual Changes, Sore Throat Pulmonary: Dyspnea, Cough Cardiovascular: Denies: Chest Pain, Palpitations, Orthopnea Gastrointestinal: Denies: Nausea, Vomiting Genitourinary: Denies: Dysuria Musculoskeletal: Denies: Neck Pain, Shoulder Pain Neurological: Weakness. Denies: Confusion Objective - Exam Vitals and I&O: Vital Signs Temp 97.6 F 11/16/16 20:47 Pulse 53 L 11/16/16 20:47 Resp 22 11/16/16 20:47 BP 125/85 11/16/16 20:47 Pulse Ox 93 11/16/16 20:47 Intake & Output 11/16/16 11/16/16 11/17/16 11:59 23:59 11:59 Intake Total 360 600 Balance 360 600 Weight 87.45 kg 88.451 kg Intake: Oral 360 600 Other: Voiding Method Toilet Toilet # Voids 2 2 # Bowel Movements 1 1 1 General: Alert, Oriented to Person, Oriented to Place, Oriented to Time, Cooperative HEENT: Atraumatic, PERRLA, EOMI Neck: Supple, No JVD Lungs: Wheezes, Rhonchi, Prolonged Expiration Cardiovascular: Irregularly Irregular Abdomen: Normal bowel sounds, Soft, No tenderness Extremities: No clubbing, No cyanosis Skin: Normal, [place], Warm Neurological: Normal speech Psych/Mental Status: Mental status NL - Results Results: Laboratory Results WBC 7.80 K/ul (4.00-12.00) 11/15/16 06:35 RBC 4.22 M/ul (3.90-5.20) 11/15/16 06:35 Hgb 12.8 g/dL (12.0-16.0) 11/15/16 06:35 Hct 40.4 % (34.5-46.5) 11/15/16 06:35 MCV 95.6 fl (80.0-100.0) 11/15/16 06:35 MCH 30.4 pg (28.0-34.0) 11/15/16 06:35 MCHC 31.8 g/dL (30.0-36.0) 11/15/16 06:35 RDW 13.3 % (11.3-14.3) 11/15/16 06:35 Plt Count 173 K/mm3 (130-400) 11/15/16 06:35 Neut % (Auto) 69.2 % (39.0-79.0) 11/15/16 06:35 Lymph % (Auto) 17.5 % (16.0-50.0) 11/15/16 06:35 [place] % (Auto) 8.4 % (0.0-11.0) 11/15/16 06:35 Eos % (Auto) 3.3 % (0.0-6.8) 11/15/16 06:35 Baso % (Auto) 0.4 (0.0-1.5) 11/15/16 06:35 Neut # 5.4 # k/uL (1.4-7.7) 11/15/16 06:35 Lymph # 1.4 # k/uL (0.6-4.0) 11/15/16 06:35 [place] # 0.6 # k/uL (0.0-0.9) 11/15/16 06:35 Eos # 0.2 # k/uL (0.0-0.6) 11/15/16 06:35 Baso # 0.0 # k/uL (0.0-0.5) 11/15/16 06:35 Reactive Lymphs % 1.3 % (0.0-5.0) 11/15/16 06:35 Reactive Lymphs # 0.1 # k/uL (0.0-0.8) 11/15/16 06:35 Sodium 136 mmol/L (136-145) 11/16/16 06:10 Potassium 4.4 mmol/L (3.5-5.0) 11/16/16 06:10 Chloride 104 mmol/L (98-110) 11/16/16 06:10 Carbon Dioxide 35 mmol/L (20-32) H 11/16/16 06:10 BUN 24 mg/dL (10-26) 11/16/16 06:10 Creatinine 1.2 mg/dL (0.4-1.5) 11/16/16 06:10 Estimated Creat Clear 53 11/16/16 06:10 Est GFR ( Amer) > 60 (60-) 11/16/16 06:10 Est GFR (Non-Af Amer) > 60 (60-) 11/16/16 06:10 Glucose 93 mg/dL (70-99) 11/16/16 06:10 Calcium 8.8 mg/dL (8.5-10.5) 11/16/16 06:10 Total Bilirubin 1.2 mg/dL (0.2-1.2) 11/13/16 19:55 AST 31 U/L (0-41) 11/13/16 19:55 ALT 25 U/L (0-45) 11/13/16 19:55 Alkaline Phosphatase 128 U/L (46-116) H 11/13/16 19:55 NT-Pro-B Natriuret Pep 3603.8 pg/mL (15.0-450.0) H 11/17/16 06:25 Total Protein 7.2 g/dL (6.0-8.5) 11/13/16 19:55 Albumin 4.1 g/dL (3.0-5.5) 11/13/16 19:55 Assessment/Plan - Assessment/Plan (1) Pneumonia Status: Acute Current Visit: No Qualifiers: Pneumonia type: due to unspecified organism Laterality: right Lung location: lower lobe of lung Qualified Code(s): J18.1 - Lobar pneumonia, unspecified organism Assessment: Continue current antibiotics (2) Congestive heart failure Status: Acute Current Visit: Yes Assessment: Will give IV lasix again today (3) Clostridium difficile colitis Status: Acute Current Visit: No Assessment: Improved on po vancomycin (4) Diarrhea Status: Acute Current Visit: No Qualifiers: Diarrhea type: presumed infectious Qualified Code(s): A09 - Infectious gastroenteritis and colitis, unspecified Assessment: Improved
[2016-11-17] MEDS ORDERED: FUROSEMIDE 20 MG/2 ML VIAL IVP ONE (09:09)
[2016-11-17] MEDS: CEFUROXIME AXETIL 250 MG TABLET PO SCH ×2 (09:27→19:51)
[2016-11-17] MEDS: GABAPENTIN 300 MG CAPSULE PO SCH ×3 (09:28→17:47)
[2016-11-17] MEDS: FUROSEMIDE 40 MG TABLET PO SCH (09:29)
[2016-11-17] MEDS: METOPROLOL SUCCINATE 50 MG TAB.ER.24H PO SCH (09:29)
[2016-11-17] MEDS: CELECOXIB 100 MG CAPSULE PO SCH (09:29)
[2016-11-17] MEDS: POTASSIUM CHLORIDE 20 MEQ TABLET.ER PO SCH (09:29)
[2016-11-17] MEDS: DILTIAZEM HCL 120 MG CAP.ER.24H PO SCH (09:29)
[2016-11-17] MEDS: DOXYCYCLINE MONOHYDRATE 100 MG CAPSULE PO SCH ×2 (09:35→19:49)
[2016-11-17] MEDS ORDERED: SALINE FLUSH 10 ML DISP.SYRIN IVF ONE (09:53)
[2016-11-17] MEDS ORDERED: FUROSEMIDE 40 MG TABLET PO ONE (10:33)
[2016-11-17] MEDS: OXYMETAZOLINE HCL 0.05% NASAL SPRAY NS SCH ×2 (12:28→19:49)
[2016-11-17] MEDS: WARFARIN SODIUM 5 MG TABLET PO SCH (17:47)
[2016-11-17] MEDS: DONEPEZIL HCL 5 MG TABLET PO SCH (19:50)
[2016-11-18] MEDS: IPRATROPIUM/ALBUTEROL SULFATE 3 ML AMPUL.NEB NEB SCH ×4 (01:15→17:28)
[2016-11-18] MEDS: LEVOTHYROXINE SODIUM 25 MCG TABLET PO SCH (05:59)
[2016-11-18] MEDS: GABAPENTIN 300 MG CAPSULE PO SCH ×3 (09:02→17:28)
[2016-11-18] MEDS: DOXYCYCLINE MONOHYDRATE 100 MG CAPSULE PO SCH ×2 (09:02→19:17)
[2016-11-18] MEDS: POTASSIUM CHLORIDE 20 MEQ TABLET.ER PO SCH (09:03)
[2016-11-18] MEDS: METOPROLOL SUCCINATE 50 MG TAB.ER.24H PO SCH (09:03)
[2016-11-18] MEDS: CELECOXIB 100 MG CAPSULE PO SCH (09:03)
[2016-11-18] MEDS: DILTIAZEM HCL 120 MG CAP.ER.24H PO SCH (09:03)
[2016-11-18] MEDS: CEFUROXIME AXETIL 250 MG TABLET PO SCH ×2 (09:04→19:17)
[2016-11-18] MEDS: FUROSEMIDE 40 MG TABLET PO SCH (09:04)
[2016-11-18] MEDS: OXYMETAZOLINE HCL 0.05% NASAL SPRAY NS SCH ×2 (09:07→19:16)
[2016-11-18] MEDS: DONEPEZIL HCL 5 MG TABLET PO SCH (19:17)
[2016-11-19] MEDS: IPRATROPIUM/ALBUTEROL SULFATE 3 ML AMPUL.NEB NEB SCH ×4 (00:10→19:15)
[2016-11-19] MEDS: LEVOTHYROXINE SODIUM 25 MCG TABLET PO SCH (06:04)
--- NOTE | 2016-11-19 08:15 | Inpatient Progress Note ---
Subjective - Required Recertification Statement I anticipate X number of days because-include discharge plan: 5 - Review of Systems Events since last encounter: Kaia appears to have turned the corner and is markedly stronger today than last exam. She is up and using her walker without difficulty, and getting stronger with ambulation. She continues to eat well. Her diarrhea is resolved. She still has a cough which is productive and she says that her congestion feels like it is in her left upper chest. General: Denies: Chills, Night Sweats HEENT: Denies: Head Aches Pulmonary: Dyspnea, Cough Cardiovascular: Denies: Chest Pain, Palpitations Gastrointestinal: Denies: Nausea, Vomiting Genitourinary: Denies: Dysuria, Frequency Musculoskeletal: Denies: Neck Pain, Shoulder Pain Neurological: Weakness (improved), Confusion (improved) Objective - Exam Vitals and I&O: Vital Signs Temp 97.4 F L 11/18/16 19:44 Pulse 94 H 11/18/16 19:45 Resp 16 11/18/16 19:45 BP 114/63 11/18/16 19:44 Pulse Ox 95 11/18/16 19:44 Intake & Output 11/18/16 11/18/16 11/19/16 11:59 23:59 11:59 Intake Total 800 760 320 Balance 800 760 320 Weight 88.451 kg 88.451 kg Intake: Oral 800 760 320 Other: Voiding Method Toilet Toilet # Voids 3 General: Alert, Oriented to Person, Oriented to Place, Oriented to Time, Cooperative HEENT: Atraumatic, PERRLA, EOMI Neck: Supple, No JVD Lungs: Wheezes, Rhonchi Cardiovascular: Irregularly Irregular Abdomen: Normal bowel sounds, Soft Extremities: No clubbing, No cyanosis Skin: Normal, [place], Warm, Dry Neurological: Normal gait, Normal speech Psych/Mental Status: Mental status NL - Results Results: Laboratory Results WBC 7.80 K/ul (4.00-12.00) 11/15/16 06:35 RBC 4.22 M/ul (3.90-5.20) 11/15/16 06:35 Hgb 12.8 g/dL (12.0-16.0) 11/15/16 06:35 Hct 40.4 % (34.5-46.5) 11/15/16 06:35 MCV 95.6 fl (80.0-100.0) 11/15/16 06:35 MCH 30.4 pg (28.0-34.0) 11/15/16 06:35 MCHC 31.8 g/dL (30.0-36.0) 11/15/16 06:35 RDW 13.3 % (11.3-14.3) 11/15/16 06:35 Plt Count 173 K/mm3 (130-400) 11/15/16 06:35 Neut % (Auto) 69.2 % (39.0-79.0) 11/15/16 06:35 Lymph % (Auto) 17.5 % (16.0-50.0) 11/15/16 06:35 [place] % (Auto) 8.4 % (0.0-11.0) 11/15/16 06:35 Eos % (Auto) 3.3 % (0.0-6.8) 11/15/16 06:35 Baso % (Auto) 0.4 (0.0-1.5) 11/15/16 06:35 Neut # 5.4 # k/uL (1.4-7.7) 11/15/16 06:35 Lymph # 1.4 # k/uL (0.6-4.0) 11/15/16 06:35 [place] # 0.6 # k/uL (0.0-0.9) 11/15/16 06:35 Eos # 0.2 # k/uL (0.0-0.6) 11/15/16 06:35 Baso # 0.0 # k/uL (0.0-0.5) 11/15/16 06:35 Reactive Lymphs % 1.3 % (0.0-5.0) 11/15/16 06:35 Reactive Lymphs # 0.1 # k/uL (0.0-0.8) 11/15/16 06:35 PT 30.4 Seconds (9.7-11.5) H 11/19/16 06:10 INR 2.8 (0.9-1.1) H 11/19/16 06:10 Sodium 136 mmol/L (136-145) 11/16/16 06:10 Potassium 4.4 mmol/L (3.5-5.0) 11/16/16 06:10 Chloride 104 mmol/L (98-110) 11/16/16 06:10 Carbon Dioxide 35 mmol/L (20-32) H 11/16/16 06:10 BUN 24 mg/dL (10-26) 11/16/16 06:10 Creatinine 1.2 mg/dL (0.4-1.5) 11/16/16 06:10 Estimated Creat Clear 53 11/16/16 06:10 Est GFR ( Amer) > 60 (60-) 11/16/16 06:10 Est GFR (Non-Af Amer) > 60 (60-) 11/16/16 06:10 Glucose 93 mg/dL (70-99) 11/16/16 06:10 Calcium 8.8 mg/dL (8.5-10.5) 11/16/16 06:10 Total Bilirubin 1.2 mg/dL (0.2-1.2) 11/13/16 19:55 AST 31 U/L (0-41) 11/13/16 19:55 ALT 25 U/L (0-45) 11/13/16 19:55 Alkaline Phosphatase 128 U/L (46-116) H 11/13/16 19:55 NT-Pro-B Natriuret Pep 3603.8 pg/mL (15.0-450.0) H 11/17/16 06:25 Total Protein 7.2 g/dL (6.0-8.5) 11/13/16 19:55 Albumin 4.1 g/dL (3.0-5.5) 11/13/16 19:55 Assessment/Plan - Assessment/Plan (1) Pneumonia Status: Acute Current Visit: No Qualifiers: Pneumonia type: due to unspecified organism Laterality: right Lung location: lower lobe of lung Qualified Code(s): J18.1 - Lobar pneumonia, unspecified organism Assessment: Continue current antibiotics (2) Congestive heart failure Status: Acute Current Visit: Yes Assessment: Improved (3) Clostridium difficile colitis Status: Acute Current Visit: No Assessment: improved (4) Diarrhea Status: Acute Current Visit: No Qualifiers: Diarrhea type: presumed infectious Qualified Code(s): A09 - Infectious gastroenteritis and colitis, unspecified Assessment: Improved
[2016-11-19] MEDS: POTASSIUM CHLORIDE 20 MEQ TABLET.ER PO SCH (09:10)
[2016-11-19] MEDS: CELECOXIB 100 MG CAPSULE PO SCH (09:11)
[2016-11-19] MEDS: OXYMETAZOLINE HCL 0.05% NASAL SPRAY NS SCH ×2 (09:11→20:41)
[2016-11-19] MEDS: DILTIAZEM HCL 120 MG CAP.ER.24H PO SCH (09:11)
[2016-11-19] MEDS: FUROSEMIDE 40 MG TABLET PO SCH (09:11)
[2016-11-19] MEDS: DOXYCYCLINE MONOHYDRATE 100 MG CAPSULE PO SCH ×2 (09:11→20:40)
[2016-11-19] MEDS: METOPROLOL SUCCINATE 50 MG TAB.ER.24H PO SCH (09:11)
[2016-11-19] MEDS: CEFUROXIME AXETIL 250 MG TABLET PO SCH ×2 (09:11→20:40)
[2016-11-19] MEDS: GABAPENTIN 300 MG CAPSULE PO SCH ×3 (09:11→19:12)
[2016-11-19] MEDS: WARFARIN SODIUM 1 MG TABLET PO SCH (19:12)
[2016-11-19] MEDS: DONEPEZIL HCL 5 MG TABLET PO SCH (20:40)
[2016-11-20] MEDS: IPRATROPIUM/ALBUTEROL SULFATE 3 ML AMPUL.NEB NEB SCH ×4 (01:56→18:22)
[2016-11-20] MEDS: LEVOTHYROXINE SODIUM 25 MCG TABLET PO SCH (05:50)
[2016-11-20] MEDS: GABAPENTIN 300 MG CAPSULE PO SCH ×3 (09:16→17:58)
[2016-11-20] MEDS: CEFUROXIME AXETIL 250 MG TABLET PO SCH ×2 (09:16→19:49)
[2016-11-20] MEDS: CELECOXIB 100 MG CAPSULE PO SCH (09:18)
[2016-11-20] MEDS: DILTIAZEM HCL 120 MG CAP.ER.24H PO SCH (09:18)
[2016-11-20] MEDS: DOXYCYCLINE MONOHYDRATE 100 MG CAPSULE PO SCH ×2 (09:19→19:49)
[2016-11-20] MEDS: METOPROLOL SUCCINATE 50 MG TAB.ER.24H PO SCH (09:19)
[2016-11-20] MEDS: POTASSIUM CHLORIDE 20 MEQ TABLET.ER PO SCH (09:19)
[2016-11-20] MEDS: FUROSEMIDE 40 MG TABLET PO SCH (09:19)
[2016-11-20] MEDS: OXYMETAZOLINE HCL 0.05% NASAL SPRAY NS SCH (10:27)
[2016-11-20] MEDS: WARFARIN SODIUM 1 MG TABLET PO SCH (17:58)
[2016-11-20] MEDS: DONEPEZIL HCL 5 MG TABLET PO SCH (19:49)
[2016-11-21] MEDS: IPRATROPIUM/ALBUTEROL SULFATE 3 ML AMPUL.NEB NEB SCH ×4 (00:01→18:16)
[2016-11-21] MEDS: LEVOTHYROXINE SODIUM 25 MCG TABLET PO SCH (06:06)
[2016-11-21] MEDS: DILTIAZEM HCL 120 MG CAP.ER.24H PO SCH (08:59)
[2016-11-21] MEDS: GABAPENTIN 300 MG CAPSULE PO SCH ×3 (09:00→18:07)
[2016-11-21] MEDS: CELECOXIB 100 MG CAPSULE PO SCH (09:00)
[2016-11-21] MEDS: POTASSIUM CHLORIDE 20 MEQ TABLET.ER PO SCH (09:00)
[2016-11-21] MEDS: DOXYCYCLINE MONOHYDRATE 100 MG CAPSULE PO SCH ×2 (09:01→19:58)
[2016-11-21] MEDS: FUROSEMIDE 40 MG TABLET PO SCH (09:01)
[2016-11-21] MEDS: METOPROLOL SUCCINATE 50 MG TAB.ER.24H PO SCH (09:01)
[2016-11-21] MEDS: CEFUROXIME AXETIL 250 MG TABLET PO SCH ×2 (09:02→19:59)
[2016-11-21] MEDS: WARFARIN SODIUM 1 MG TABLET PO SCH (18:07)
[2016-11-21] MEDS: DONEPEZIL HCL 5 MG TABLET PO SCH (19:58)
[2016-11-22] MEDS: IPRATROPIUM/ALBUTEROL SULFATE 3 ML AMPUL.NEB NEB SCH ×2 (03:06→06:19)
[2016-11-22] MEDS: LEVOTHYROXINE SODIUM 25 MCG TABLET PO SCH (05:58)
[2016-11-22] MEDS: POTASSIUM CHLORIDE 20 MEQ TABLET.ER PO SCH (09:00)
[2016-11-22] MEDS: FUROSEMIDE 40 MG TABLET PO SCH (09:00)
[2016-11-22] MEDS: METOPROLOL SUCCINATE 50 MG TAB.ER.24H PO SCH (09:02)
[2016-11-22] MEDS: GABAPENTIN 300 MG CAPSULE PO SCH ×2 (09:02→12:21)
[2016-11-22] MEDS: CELECOXIB 100 MG CAPSULE PO SCH (09:02)
[2016-11-22] MEDS: DOXYCYCLINE MONOHYDRATE 100 MG CAPSULE PO SCH (09:03)
[2016-11-22] MEDS: DILTIAZEM HCL 120 MG CAP.ER.24H PO SCH (09:03)
[2016-11-22] MEDS: CEFUROXIME AXETIL 250 MG TABLET PO SCH (09:03)
--- NOTE | 2016-11-22 10:17 | Discharge Summary ---
DATE OF ADMISSION: November 12, 2016 DATE OF DISCHARGE: November 22, 2016 DIAGNOSES ON THIS HOSPITALIZATION: 1. Right lower lobe pneumonia. 2. Congestive heart failure. 3. Atrial fibrillation. 4. Clostridium difficile colitis. 5. Diarrhea. 6. Dehydration. 7. Anticoagulation. SUMMARIZATION OF ADMISSION HISTORY AND PHYSICAL: This is an 86-year-old female initially admitted to acute care on November 08, 2016, after she presented to the office with increasing shortness of breath and cough. She was noted to have right lower lobe pneumonia. She was admitted for IV antibiotics. She was also noted to have diarrhea at that time and her stool was positive for clostridium difficile. As a result, she was placed on p.o. vancomycin because she cannot tolerate oral Flagyl. She was also placed on cefuroxime and doxycycline. She tolerated this therapy well and she had slow but steady improvement. Therapy was able to get her ambulating and she was able to walk all the way around the department by the day of discharge. She was discharged to home then on the following medications. MEDICATIONS ON DISCHARGE: 1. Warfarin 5 mg p.o. daily. 2. Diltiazem 120 mg p.o. daily. 3. Donepezil 10 mg daily. 4. Lasix 40 mg daily. 5. Gabapentin 300 mg p.o. t.i.d. 6. DuoNeb 1 vial by nebulizer q.i.d. 7. Levothyroxine 50 mcg daily. 8. Potassium chloride 20 mEq daily. DISCHARGE INSTRUCTIONS: I will see her back in the office on Tuesday of this week. NISA
[2016-11-22 10:29] VITALS: BP 119/71
== END 2016-11-22 13:05 | disposition home health service (06) | DRG 194 ==
LOC: SOUTH 09:50
PROVIDERS: ADMIT Family Medicine; ATTEND Family Medicine
DX: J18.9 Pneumonia, unspecified organism (principal); A04.7 Enterocolitis due to Clostridium difficile; I50.9 Heart failure, unspecified; I48.91 Unspecified atrial fibrillation; E86.0 Dehydration
CPT/HCPCS: 36415; 71020; 80048; 80053; 83880; 85025; 85610; 94640; 94760; 97110; 97116; 97165; 97530; 97535; A9270; J1940

== ENCOUNTER 2016-11-24 21:23 | Emergency (ER) | payer MEDICARE, OTHER ==
--- NOTE | 2016-11-24 22:10 | ED Physician Documentation ---
Upper Respiratory Symptoms - HISTORIAN Historian: patient, child - HPI Stated Complaint: wt gain/ does not feel well Chief Complaint: Cough/ Upper Respiratory Additional Information: she was discharged 2 days ago, and wants to be readmitted because they treated her so well here. She was discharged with aerosol breathing treatmnets which she can't give herself at home. Her daughter usually helps her and can't because she is sick now. She is fairly anxious. but doesn't have any specific new medical complaints. Onset: hours Duration: constant Context: denies: recent foreign travel Severity: mild Associated Symptoms: productive cough. denies: fever, chills, sweating, runny nose, sinus pain, sinus drainage, sore throat Worsened by Deep Breath: No Further Comments: no - ROS CONST/EYES: denies: weakness CVS/RESP: none LYMPH: leg swelling GI/: none NEURO/PSYCH: anxiety. denies: fainting MS/SKIN: denies: joint pain, muscle aches - PAST HX Lung Disease: none PE Risk Factors: none Surgeries/Procedures: none, appendectomy, endoscopy, EGD, colon, cardiac bypass , cholecystectomy, hysterectomy, , cardiac stent, BLT, other Immunizations: UTD Allergies/Adverse Reactions: Allergies Allergy/AdvReac Type Severity Reaction Status Date / Time No Known Allergies Allergy Verified 07/03/16 11:47 Home Medications: Ambulatory Orders Medication Instructions Recorded Aspirin EC [Ecotrin] 81 mg PO DAILY 07/03/16 Cefuroxime Axetil [Ceftin] 250 mg PO BID 07/03/16 Gabapentin [Neurontin] 300 mg PO TID 07/03/16 - SOCIAL HX Smoking History: non-smoker Alcohol Use: none Drug Use: none - FAMILY HX Family History: none - VITAL SIGNS Vital Signs: Vital Signs Temp Pulse Resp BP Pulse Ox 98.6 F 100 H 18 138/83 92 11/24/16 21:48 11/24/16 21:48 11/24/16 21:48 11/24/16 21:48 11/24/16 21:48 - REVIEWED ASSESSMENTS Nursing Assessment Reviewed: Yes Vitals Reviewed: Yes Progress - Results/Orders Results/Orders: Doing better since treatment, but discovered she has only started the home aerosol teratmenst recently and shge has hbeen real anxious and jittery since. so I think that may be part of the problem. She feels better and just wants to go home. ED Results Lab/Radiology - Lab Results Lab Results: Lab Results 11/24/16 11/24/16 11/24/16 22:45 22:45 22:45 WBC 6.40 K/ul K/ul (4.00-12.00) RBC 4.38 M/ul M/ul (3.90-5.20) Hgb 13.4 g/dL g/dL (12.0-16.0) Hct 42.0 % % (34.5-46.5) MCV 95.8 fl fl (80.0-100.0) MCH 30.6 pg pg (28.0-34.0) MCHC 31.9 g/dL g/dL (30.0-36.0) RDW 13.6 % % (11.3-14.3) Plt Count 164 K/mm3 K/mm3 (130-400) Neut % (Auto) 53.5 % % (39.0-79.0) Lymph % (Auto) 30.9 % % (16.0-50.0) [place] % (Auto) 9.6 % % (0.0-11.0) Eos % (Auto) 2.7 % % (0.0-6.8) Baso % (Auto) 0.4 (0.0-1.5) Neut # 3.4 # k/uL # k/uL (1.4-7.7) Lymph # 2.0 # k/uL # k/uL (0.6-4.0) [place] # 0.6 # k/uL # k/uL (0.0-0.9) Eos # 0.2 # k/uL # k/uL (0.0-0.6) Baso # 0.0 # k/uL # k/uL (0.0-0.5) Reactive Lymphs % 2.9 % % (0.0-5.0) Reactive Lymphs # 0.2 # k/uL # k/uL (0.0-0.8) PT 17.1 Seconds H Seconds (9.7-11.5) INR 1.6 H (0.9-1.1) APTT 26.9 Seconds Seconds (24.5-32.8) Sodium 144 mmol/L mmol/L (136-145) Potassium 4.4 mmol/L mmol/L (3.5-5.0) Chloride 108 mmol/L mmol/L (98-110) Carbon Dioxide 33 mmol/L H mmol/L (20-32) BUN 29 mg/dL H mg/dL (10-26) Creatinine 1.3 mg/dL mg/dL (0.4-1.5) Estimated Creat Clear 52 Est GFR ( Amer) > 60 (60 - ) Est GFR (Non-Af Amer) 41 L (60 - ) Glucose 113 mg/dL H mg/dL (70-99) Calcium 9.6 mg/dL mg/dL (8.5-10.5) Total Bilirubin 0.9 mg/dL mg/dL (0.2-1.2) AST 29 U/L U/L (0-41) ALT 18 U/L U/L (0-45) Alkaline Phosphatase 115 U/L U/L (46-116) Total Protein 7.3 g/dL g/dL (6.0-8.5) Albumin 4.1 g/dL g/dL (3.0-5.5) - Orders Orders: ED Orders Category Date Time Status Assess pulse oximetry Q1H Care 11/24/16 22:[address] Saline Lock/IV Now Care 11/24/16 22:13 Active CHEST P.A.&LAT 2 VIEWS [RAD] Stat Exams 11/24/16 Taken CBC/PLATELET/DIFF Routine Lab 11/24/16 22:45 Completed CMP Routine Lab 11/24/16 22:45 Completed PT-INR Routine Lab 11/24/16 22:45 Completed PTT Routine Lab 11/24/16 22:45 Completed Dexamethasone Sod Phosphate [Decadron] Med 11/24/16 22:13 Discontinued 4 mg NEB NOW ONE Furosemide [Lasix] Med 11/24/16 22:15 Discontinued 20 mg IVP NOW ONE Ipratropium/Albuterol Sulfate [Duoneb] Med 11/24/16 22:13 Discontinued 3 ml NEB NOW ONE Sodium Chloride For Inhalation [Dey] Med 11/24/16 22:51 Discontinued 3 ml IH .STK-MED ONE Upper Respiratory Symptoms - EXAM General Appearance: no acute distress, alert, anxious EENT: eyes nml inspection, nml ENT inspection, lids & conjunct. nml. No: rhinorrhea, pharyngeal erythema, tonsillar swelling Neck: normal inspection, supple. No: stiff neck, carotid bruit Respiratory: no resp. distress, no pain on inspiration, speaks full sentences, wheezes, rales. No: respiratory distress Abdomen: non-tender CVS: reg rate & rhythm Skin: color nml, no rash Extremities: non-tender, edema Neuro/Psych: oriented x3, neuro intact, mood/affect nml Discharge Clincal Impression: Stress reaction, Medication reaction URI (upper respiratory infection) Qualifiers: URI type: unspecified URI Qualified Code(s): J06.9 - Acute upper respiratory infection, unspecified CHF (congestive heart failure) Qualifiers: Congestive heart failure type: unspecified congestive heart failure type Congestive heart failure chronicity: acute on chronic Qualified Code(s): I50.9 - Heart failure, unspecified Home Medications: Ambulatory Orders Aspirin EC [Ecotrin] 81 mg PO DAILY 07/03/16 Cefuroxime Axetil [Ceftin] 250 mg PO BID 07/03/16 Gabapentin [Neurontin] 300 mg PO TID 07/03/16 Condition: Good Disposition: 01 HOME, SELF-CARE Decision to Admit: NO Date of Decison to Admit: 11/24/16 Decision Time: 23:40
[2016-11-24] MEDS ORDERED: IPRATROPIUM/ALBUTEROL SULFATE 3 ML AMPUL.NEB NEB ONE (22:13)
[2016-11-24] MEDS ORDERED: DEXAMETHASONE SOD PHOS 4 MG/ML VIAL NEB ONE (22:13)
[2016-11-24] MEDS ORDERED: FUROSEMIDE 20 MG/2 ML VIAL IVP ONE (22:15)
[2016-11-24 22:51] LABS: BASOPHILS % 0.4 (0.0-1.5); EOSINOPHILS % 2.7 % (0.0-6.8); MEAN CORPUSCULAR HEMOGLOBIN 30.6 pg (28.0-34.0); MONOCYTES # 0.6 # k/uL (0.0-0.9); MONOCYTES % 9.6 % (0.0-11.0); NEUTROPHILS # 3.4 # k/uL (1.4-7.7)
[2016-11-24] MEDS ORDERED: SODIUM CHLORIDE 3 ML VIAL.NEB IH ONE (22:51)
[2016-11-24 23:04] LABS: eGFR (African) > 60; eGFR (Non-African) 41
[2016-11-25 02:38] VITALS: BP 142/62
--- NOTE | 2016-11-25 06:18 | Diagnostic Imaging Report ---
Report Submission Date: Nov 24, 2016 11:27:11 PM CDT Patient ~ Study Name: NISH CASH ~ Date: Nov 24, 2016 10:56:57 PM CDT ~ Modality Type: CR Gender: F ~ Description: CHEST : 28 ~ Institution: [facility] Physician: ELISSA TURNER ~ ~ ~ ~ Chest, PA and lateral History: Cough Findings: No infiltrate, effusion or pneumothorax is present. The heart is enlarged. Pulmonary vascularity is normal. There is calcification in the thoracic aorta. Since 16 November 2016, lungs have improved. Impression: 1. Cardiomegaly. 2. Aortic atherosclerosis. ~ Electronically signed on Nov 24, 2016 11:27:11 PM CDT by: Noman PAULA
== END 2016-11-25 00:05 | disposition home or self-care (01) ==
LOC: ED 21:23
DX: J06.9 Acute upper respiratory infection, unspecified (principal); I50.9 Heart failure, unspecified
CPT/HCPCS: 71020; 80053; 85025; 85610; 85730; J1100; J1940; 96374; 96375; 99283; 99284; S1016

== ENCOUNTER 2016-12-13 13:32 | Outpatient (CLI) | payer MEDICARE, OTHER | END 2016-12-13 13:33 | LOC: LABRHC 13:32 | PROVIDERS: ATTEND Family Medicine | DX: Z79.01 Long term (current) use of anticoagulants (principal); Z51.81 Encounter for therapeutic drug level monitoring | CPT/HCPCS: 85610 ==

== ENCOUNTER 2017-01-27 17:45 | Outpatient (CLI) | payer MEDICARE, OTHER ==
[2017-01-27 17:50] LABS: BASOPHILS % 0.5 (0.0-1.5); EOSINOPHILS % 1.3 % (0.0-6.8); MEAN CORPUSCULAR HEMOGLOBIN 31.8 pg (28.0-34.0); MEAN CORPUSCULAR VOLUME 96.5 fl (80.0-100.0); MONOCYTES % 9.2 % (0.0-11.0); NEUTROPHILS # 3.4 # k/uL (1.4-7.7)
[2017-01-28 18:31] LABS: ADENOVIRUS F 40/41 Not Detected (Not Detected); ASTROVIRUS Positive (Not Detected); C. DIFFICILE (TOXIN A/B) Positive (Not Detected); CRYPTOSPORIDIUM Not Detected (Not Detected); CYCLOSPORA CAYETANENSIS Not Detected (Not Detected); ENTAMOEBA HISTOLYTICA Not Detected (Not Detected); GIARDIA LAMBLIA Not Detected (Not Detected); ROTAVIRUS A Not Detected (Not Detected); SAPOVIRUS Not Detected (Not Detected); VIBRIO CHOLERAE Not Detected (Not Detected)
== END 2017-01-27 17:46 ==
LOC: LABRHC 17:45
PROVIDERS: ATTEND Family Medicine
DX: K92.1 Melena (principal); Z51.81 Encounter for therapeutic drug level monitoring; A09 Infectious gastroenteritis and colitis, unspecified
CPT/HCPCS: 85025; 85610; 87507

== ENCOUNTER 2017-07-04 10:46 | Outpatient (CLI) | payer MEDICARE, OTHER | END 2017-07-04 10:47 | LOC: LAB 10:46 | PROVIDERS: ATTEND Family Medicine | DX: E03.9 Hypothyroidism, unspecified (principal) | CPT/HCPCS: 36415; 84443 ==

== ENCOUNTER 2017-07-27 16:36 | Outpatient (CLI) | payer MEDICARE, OTHER ==
[2017-07-27 17:21] LABS: BASOPHILS % 0.7 (0.0-1.5); EOSINOPHILS % 2.7 % (0.0-6.8); MEAN CORPUSCULAR HEMOGLOBIN 31.7 pg (28.0-34.0); MEAN CORPUSCULAR VOLUME 96.2 fl (80.0-100.0); MONOCYTES % 9.5 % (0.0-11.0); NEUTROPHILS # 3.8 # k/uL (1.4-7.7)
[2017-07-27 18:03] LABS: eGFR (African) 42; eGFR (Non-African) 35
== END 2017-07-27 16:50 ==
LOC: LAB 16:36
PROVIDERS: ATTEND Family Medicine
DX: R10.11 Right upper quadrant pain (principal); I10 Essential (primary) hypertension; R10.9 Unspecified abdominal pain
CPT/HCPCS: 36415; 80053; 85025

== ENCOUNTER 2017-07-28 10:04 | Outpatient (CLI) | payer MEDICARE, OTHER ==
[2017-07-28 10:16] LABS: APPEARANCE,URINE Clear (CLEAR); COLOR,URINE Yellow (YELLOW); OCCULT BLOOD,URINE Negative (NEGATIVE); UROBILINOGEN URINE 0.2 Eu (0.2-1.0)
--- NOTE | 2017-07-28 15:22 | Diagnostic Imaging Report ---
SILVIA BAEZ [facility] [address] [facility] [address] 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 Gallbladder wall measures 2.5 mm. Common bile duct measures 2.6 mm. No intrahepatic biliary dilation. Liver demonstrates normal homogeneous echogenicity. No mass or cyst. Normal flow on color analysis. Normal Doppler waveforms. Right kidney measures 9.3 cm in length. No cortical mass or cyst. No hydronephrosis. Pancreatic region without gross irregularity. Impression: Small gallstones. No obstruction. Unremarkable abdominal ultrasound. Electronically signed on Jul 28, 2017 11:57:44 AM ENVIRONMENTAL HEALTH MANAGER by: Eliezer PAULA
== END 2017-07-28 11:26 ==
LOC: RAD 10:04
PROVIDERS: ATTEND Family Medicine
DX: R10.11 Right upper quadrant pain (principal); I10 Essential (primary) hypertension; R10.9 Unspecified abdominal pain
CPT/HCPCS: 76705; 81002; 87086; 87186

== ENCOUNTER 2017-12-26 14:06 | Outpatient (CLI) | payer MEDICARE, OTHER ==
[2017-09-02 09:18] VITALS: BP 99/58
--- NOTE | 2017-12-26 15:21 | Diagnostic Imaging Report ---
SILVIA BAEZ [facility] [address] [facility] [address] [address] Report Submission Date: Dec 26, 2017 2:51:25 PM CDT Patient Study Name: NISH CASH Date: Dec 26, 2017 2:25:11 PM CDT Modality Type: DX Gender: F Description: SPINE : 28 Institution: [facility] Physician: SILVIA BAEZ Examination: Plain film lumbar spine History: PT C/O CHRONIC LOW BACK PAIN. HISTORY OF KYPHOPLASTY. (Hx) Findings: 3 views of the lumbar spine demonstrates prior L4 kyphoplasty. Diffuse osteopenia. Osteophyte formation. No anterior compression. Mild degenerative wedging of T12. Atherosclerotic disease involving the abdominal aorta. Impression: Prior L4 kyphoplasty. Degenerative changes. No acute appearing compression deformity. Electronically signed on Dec 26, 2017 2:51:25 PM CDT by: Eliezer PAULA
== END 2017-12-26 14:08 ==
LOC: RAD 14:06
PROVIDERS: ATTEND Family Medicine
DX: M54.5 Low back pain (principal)
CPT/HCPCS: 72100

== ENCOUNTER 2018-05-19 09:31 | Outpatient (CLI) | payer MEDICARE, OTHER ==
[2017-09-02 09:18] VITALS: BP 99/58
[2018-05-19 10:45] LABS: MEAN CORPUSCULAR HEMOGLOBIN 32.3 pg (28.0-34.0); MEAN CORPUSCULAR VOLUME 98.6 fl (80.0-100.0)
[2018-05-19 11:01] LABS: MONOCYTES % 10 % (0-11); SEGMENTED NEUTROPHILS % 77 % (39-79)
[2018-05-19 11:02] LABS: TOXIC VACUOLATION PRESENT
--- NOTE | 2018-05-19 18:23 | Diagnostic Imaging Report ---
FANNY MOON [facility] [address] [facility] [address] Report Submission Date: May 19, 2018 10:25:11 AM CDT Patient Study Name: NISH CASH Date: May 19, 2018 9:44:40 AM CDT Modality Type: DX Gender: F Description: CHEST : 28 Institution: [facility] Physician: FANNY MOON Portable chest History: Cough Portable chest dated May 19, 2018 demonstrates moderate cardiomegaly. Pulmonary vascularity is normal. There is no confluent infiltrate or pleural effusion. Impression: Moderate cardiomegaly. No active disease. Electronically signed on May 19, 2018 10:25:11 AM CDT by: Tatiana PAULA
== END 2018-05-19 09:45 ==
LOC: LAB 09:31
PROVIDERS: ATTEND Physician Assistant
DX: R05 Cough (principal); R06.2 Wheezing
CPT/HCPCS: 36415; 71046; 85025

== ENCOUNTER 2018-08-23 13:02 | Outpatient (CLI) | payer MEDICARE, OTHER ==
[2017-09-02 09:18] VITALS: BP 99/58
[2018-08-23 13:14] LABS: BASOPHILS % 0.4 (0.0-1.5); EOSINOPHILS % 1.9 % (0.0-6.8); MEAN CORPUSCULAR HEMOGLOBIN 32.7 pg (28.0-34.0); MONOCYTES % 11.7 % (0.0-11.0); NEUTROPHILS # 3.9 # k/uL (1.4-7.7)
[2018-08-23 17:51] LABS: eGFR (Non-African) 41
== END 2018-08-23 13:03 ==
LOC: LABRHC 13:02
PROVIDERS: ATTEND Family Medicine
DX: I10 Essential (primary) hypertension (principal); E03.9 Hypothyroidism, unspecified
CPT/HCPCS: 80053; 84443; 85025